=== PATIENT | male | born 1995 | race African-American/Black ===

== ENCOUNTER → 2019-09-13 | Outpatient (CLI) | payer OTHER ==
--- NOTE | 2019-09-13 09:12 | RADIOLOGY REPORT (SQ) ---
EXAM DESCRIPTION: DUPLEX ART/FREDERIC FLOW COMPLETE COMPLETED DATE/TIME: 09/13/2019 8:28 am REASON FOR STUDY: ULI (I70.1) I70.1 ATHEROSCLEROSIS OF RENAL ARTERY COMPARISON: None. TECHNIQUE: Realtime and static grayscale images acquired. Selected color Doppler, velocities and spe ctral images recorded. LIMITATIONS: None. FINDINGS: RIGHT KIDNEY: RENAL ARTERY VELOCITIES: Origin 106 cm/sec. Mid 87 cm/sec. Hilum 67 cm/sec. Segmental artery veloci ty 57 cm/sec. RENAL VEIN: Color doppler flow present, patent. VELOCITY RATIO: 0.69. Normal waveforms. KIDNEY: Normal in size measuring 10.2 cm. No significant pathology. LEFT KIDNEY: RENAL ARTERY VELOCITIES: Origin 111 cm/sec. Mid 96 cm/sec. Hilum 80 cm/sec. Segmental artery veloc ity 49 cm/sec. RENAL VEIN: Color doppler flow present, patent. VELOCITY RATIO: 0.77. Normal waveforms. KIDNEY: Normal size measuring 10.2 cm. No significant pathology. BLADDER: Normal. Bilateral ureteral jets identified. OTHER: Aortic velocity 124 cm/sec IMPRESSION: NO DOPPLER EVIDENCE OF HEMODYNAMICALLY SIGNIFICANT RENAL ARTERY STENOSIS. COMMENT: NORMAL RENAL ARTERY/AORTA VELOCITY RATIO IS LESS THAN OR EQUAL TO 3.5. TECHNICAL DOCUMENTATION: JOB ID: [id number] [employer]- All Rights Reserved Reading location - IP/workstation name: [email or web address]
== END ==
LOC: RAD 07:31
PROVIDERS: ATTEND Internal Medicine Cardiovascular Disease
DX: I70.1 Atherosclerosis of renal artery (principal)
CPT/HCPCS: 93975